=== PATIENT | male | born 1940 | race Caucasian/White ===

== ENCOUNTER 2020-03-07 06:21 | Observation (INO) | payer MEDICARE, OTHER ==
[2020-03-05 14:24] LABS: BASOPHILS # (AUTO) 0.1 X10'3 (0-0.2); BASOPHILS % (AUTO) 0.8 % (0-1); EOSINOPHILS # (AUTO) 0.2 X10'3 (0-0.9); LYMPHOCYTES # (AUTO) 1.9 X10'3 (1.1-4.8); LYMPHOCYTES % (AUTO) 21.4 % (21-51); MEAN CORPUSCULAR HEMOGLOBIN 30.1 PG (27.0-31.0); MEAN CORPUSCULAR HGB CONC 33.1 g/dL (33.0-36.5); MEAN PLATELET VOLUME 8.8 FL (7.4-10.4); MONOCYTES # (AUTO) 0.9 X10'3 (0-0.9); MONOCYTES % (AUTO) 10.5 % (2-12); NEUTROPHILS # (AUTO) 5.7 X10'3 (1.8-7.7); NEUTROPHILS % (AUTO) 65.3 % (42-75); PRE OP HEMATOCRIT 44.8 % (42.0-52.0); PRE OP HEMOGLOBIN 14.8 g/dL (14.0-17.9); PRE OP PLATELET COUNT 199 X10'3 (140-440); RED BLOOD COUNT 4.93 X10'6 (4.70-6.10); RED CELL DISTRIBUTION WIDTH 14.4 % (11.5-14.5)
[2020-03-05 14:37] LABS: PRE OP PROTIME 10.6 SECONDS (9.0-12.0)
[2020-03-05 14:44] LABS: ALBUMIN 3.8 G/DL (3.4-5.0); ALBUMIN/GLOBULIN RATIO 1.3 (1.1-1.5); ALKALINE PHOSPHATASE 70 IU/L (46-116); BLOOD UREA NITROGEN 14 MG/DL (7-18); BUN/CREATININE RATIO 12.3 (5.4-32.0); CHLORIDE 105 MMOL/L (99-107); CREATININE 1.14 MG/DL (0.60-1.10); PRE OP ALT 38 U/L (30-65); PRE OP ANION GAP 8 (8-16); PRE OP AST 19 U/L (10-37); PRE OP BILIRUB, TOTAL 1.2 MG/DL (0.0-1.0); PRE OP GLUCOSE 88 MG/DL (70-104); PRE OP POTASSIUM 4.4 MMOL/L (3.4-5.1); PRE OP SODIUM 139 MMOL/L (135-145); TOTAL CARBON DIOXIDE 26.1 MMOL/L (24-32); TOTAL PROTEIN 6.8 G/DL (6.4-8.2); eGFR 62 ML/MIN
[2020-03-07] VITALS (22 sets, daily range): BP systolic 122–165; BP diastolic 51–82
[~2020-03-07] VITALS: Ht 180.3 cm; Wt 75.8 kg
[~2020-03-07 06:21] MED LIST: ASPI-611 PO; DOMPERIDONE PO; ENAL10TA PO; FINA5TAB11 PO; FLO0.4C PO; FOLIC ACID PO; PANT40TA4 PO; SIMV10TA98 PO; famotidine 20mg tablet PO ONE; ringers solution, lacted 1,000 ML IV SCH
[2020-03-07] MEDS ORDERED: LIDOcaine 1% (10mg/ml) 2ml vial ONE (06:36)
[2020-03-07] MEDS ORDERED: LIDOcaine 1% 30ml preserv. free vial ONE (06:47)
[2020-03-07] MEDS ORDERED: cefazolin/dext.iso 2gm/50ml 50 ML IV ONE (08:55)
[2020-03-07] MEDS ORDERED: fentaNYL/PF 50MCG/1 ML 2ML syringe ONE (09:13)
[2020-03-07] MEDS ORDERED: midazolam 2 mg/2 ml injection ONE (09:14)
[2020-03-07] MEDS ORDERED: ceFAZolin 1000mg inj ONE (09:19)
[2020-03-07] MEDS ORDERED: propofol inj 20 ML IV ONE (09:46)
[2020-03-07] MEDS ORDERED: meperidine/PF 25mg/ml syringe IV PRN ×3 (09:55)
[2020-03-07] MEDS ORDERED: proCHLORperazine 10 MG/2 ml inj IV PRN (09:55)
[2020-03-07] MEDS ORDERED: ondansetron/PF 4mg/2ml inj IV PRN ×2 (09:55→10:15)
[2020-03-07] MEDS ORDERED: morphine 2 MG/ML inj. syringe IV PRN (09:55)
[2020-03-07] MEDS ORDERED: morphine 4 MG/ML inj SYRINge IV PRN (09:55)
[2020-03-07] MEDS ORDERED: ringers solution, lacted 1,000 ML IV SCH (09:55)
--- NOTE | 2020-03-07 10:08 | NUR ---
Received from OR via JAMILA , accompanied by Anesthesiologist SERENE and report given by Anesthesiolgist. PATIENT WITH PIV TO LEFT AC RUNNING LR AT 100. DENIES PAIN . LEFT CHEST WALL WITH OPSITE DRESSING THAT IS CDI. SCDS DONNED. Addendum: 03/07/20 at 1024 by Edwin Roe RN, RN Amended: Links added.
[2020-03-07] MEDS ORDERED: HYDROcodone/acetaminophen 10/325mg tab PO PRN (10:15)
[2020-03-07] MEDS ORDERED: ceFAZolin inj. 1,000 MG in dextrose 5%-water 50ml 50 ML IV SCH (16:00)
[2020-03-07] MEDS: potassium CL 20mEq in D5-1/2NS 1,000 ML IV SCH ×2 (17:21→18:13)
--- NOTE | 2020-03-07 18:30 | NUR ---
Problems reprioritized. Patient report given, questions answered & plan of care reviewed with Miko QUINTANILLA.
--- NOTE | 2020-03-07 22:30 | NUR ---
Patient in room PCU 3018. I have received report from [place]IGHT [place] and had the opportunity to ask questions and assume patient care.
[2020-03-08] MEDS: ceFAZolin 1GM/D5W- ADD-VANTAGE 50 ML IV SCH ×2 (00:32→09:36)
[2020-03-08 01:30] VITALS: BP 156/53
--- NOTE | 2020-03-08 01:30 | NUR ---
Problems reprioritized. Patient report given, questions answered & plan of care reviewed with DWIGHT Bustos.
--- NOTE | 2020-03-08 01:31 | NUR ---
Patient transferred to Med/Surg floor by [facility] to RM 354. Tele changed to number 8. All belongings were bought with him.
--- NOTE | 2020-03-08 01:35 | NUR ---
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 PLACED COMFORTABLE IN BED. VITAL SIGNS WAS TAKEN AND RECORDED.
--- NOTE | 2020-03-08 06:30 | NUR ---
Problems reprioritized. Patient report given, questions answered & plan of care reviewed with ANDRE QUINTANILLA.
[2020-03-08 07:00] VITALS: BP 161/70
--- NOTE | 2020-03-08 07:06 | NUR ---
Patient in room [facility] 354. I have received report from SARATH CLEMENS RN and had the opportunity to ask questions and assume patient care.
[2020-03-08 11:00] VITALS: BP 165/73
--- NOTE | 2020-03-08 11:44 | NUR ---
Called CT regarding CT scan Dr Deluca wants done right not. They are aware and will be up to get patient when they complete patient they have on table. Primary RN aware.
--- NOTE | 2020-03-08 14:15 | NUR ---
PATIENT STABLE AND APPROPRIATE FOR DISCHARGE, TELL TAKEN OFF, IV TAKEN OUT, EDUCATION GIVEN, ALL BELONGINGS SENT WITH PATIENT, PATIENT TAKEN TO LOBBY IN WHEELCHAIR TO AN WAITING CAR WHERE WILL TAKE PATIENT HOME
--- NOTE | 2020-03-15 12:16 | NUR ---
Case Management DC follow up: spoke to pt via telephone. S/P: Pacer implant. Reports: "doing pretty good". Denies: acute/worsening cp, SOB, resp distress, vertigo, syncope,weakness, blurry vision, N/V, CALERO, emergent general pain, abd tenderness/distension. Denies s/s infection at precedure site. Verbalizes understanding of s/s that warrant 9-11/ER visit for evaluation. Verbalizes understanding of new Rx and why prescribed, resumes current Rx/taking as ordered, no ase r/t polypharmacy. Compliance w/after care. Acknowledges need to schedule/keep follow up appts w/ PCP:Molina. pt agrees to call/schedule follow up & request copies of records r/t recent admit, Dr Deluca 03/13/20, Dr Fonseca/first week April. Needs met, questions answered at DC, no further questions at this time.
== END 2020-03-08 14:15 | disposition home or self-care (01) ==
LOC: PAS 06:21 → PCU 3S 10:13 → INTOOBSV 10:13 → SUR 3N 03-08 01:36
PROVIDERS: ADMIT Surgery; ATTEND Surgery
DX: I44.1 Atrioventricular block, second degree (principal)
CPT/HCPCS: 33208; 36415; 71045; 71046; 71048; 71250; 76000; 80053; 82948; 85025; 85610; 85730; 87081; 93005; 96365; 96366; C1785; G0378; J0690; J2001; J2250; J2704; J3010; J3480; J7060; J7120; A4215; A4565; A4618; A6258; A6449; A7000

== ENCOUNTER 2022-07-08 08:01 | Day surgery (SDC) | payer MEDICARE, OTHER ==
[2022-07-07 11:37] LABS: BASOPHILS % (AUTO) 0.5 % (0-1); EOSINOPHILS # (AUTO) 0.2 X10'3 (0-0.9); EOSINOPHILS % (AUTO) 2.4 % (0-6); HEMATOCRIT 45.3 % (42.0-52.0); HEMOGLOBIN 15.2 g/dl (14.0-17.9); LYMPHOCYTES # (AUTO) 1.9 X10'3 (1.1-4.8); LYMPHOCYTES % (AUTO) 26.9 % (21-51); MEAN CORPUSCULAR HEMOGLOBIN 30.4 PG (27.0-31.0); MEAN CORPUSCULAR HGB CONC 33.6 g/dL (33.0-36.5); MEAN CORPUSCULAR VOLUME 90.6 FL (78-98); MONOCYTES # (AUTO) 0.8 X10'3 (0-0.9); MONOCYTES % (AUTO) 12.2 % (2-12); PLATELET COUNT 214 X10'3 (140-440); RED CELL DISTRIBUTION WIDTH 14.4 % (11.5-14.5); WHITE BLOOD COUNT 6.9 X10'3 (4.5-11.0)
[2022-07-07 11:55] LABS: APTT 27 SECONDS (22-32)
[2022-07-07 12:04] LABS: ALANINE AMINOTRANSFERASE 30 U/L (12-78); ALBUMIN 3.8 G/DL (3.4-5.0); ALBUMIN/GLOBULIN RATIO 1.2 (1.1-1.5); ALKALINE PHOSPHATASE 81 IU/L (46-116); ANION GAP 7 (8-16); ASPARTATE AMINO TRANSFERASE 19 U/L (10-37); BILIRUBIN,TOTAL 0.9 MG/DL (0.1-1.0); BLOOD UREA NITROGEN 14 MG/DL (7-18); BUN/CREATININE RATIO 15.7 (5.4-32.0); CHLORIDE 103 MMOL/L (99-107); CREATININE 0.89 MG/DL (0.60-1.10); GLUCOSE 96 MG/DL (70-104); POTASSIUM 4.1 MMOL/L (3.5-5.1); SODIUM 137 MMOL/L (135-145); TOTAL CARBON DIOXIDE 27.5 MMOL/L (24-32); eGFR 82 ML/MIN
[2022-07-08] VITALS (10 sets, daily range): BP systolic 111–157; BP diastolic 48–88
[~2022-07-08] VITALS: Ht 180.3 cm; Wt 73.8 kg
[~2022-07-08 08:01] MED LIST changes: -PANT40TA4 PO; +PANT40TA54 PO; -famotidine 20mg tablet PO ONE; -ringers solution, lacted 1,000 ML IV SCH
[2022-07-08] MEDS ORDERED: LORazepam 0.5 MG tablet PO PRN (08:20)
[2022-07-08] MEDS ORDERED: nitroGLYCERIN 0.4mg SUBLingual tab SL PRN ×2 (08:20→12:00)
[2022-07-08] MEDS ORDERED: normal saline 1,000 ML IV SCH (08:20)
[2022-07-08] MEDS ORDERED: diphenhydrAMINE 25mg capsule PO PRN (08:20)
[2022-07-08] MEDS ORDERED: PYRI-3 PO (08:35)
[2022-07-08] MEDS ORDERED: ATOR10TA87 PO (08:35)
[2022-07-08] MEDS ORDERED: CYAN100T47 PO (08:35)
[2022-07-08] MEDS ORDERED: DIGO250T4 PO (08:35)
[2022-07-08] MEDS ORDERED: ENAL2.5T40 PO (08:35)
[2022-07-08] MEDS ORDERED: CHOL400T57 PO (08:35)
[2022-07-08] MEDS ORDERED: CARV-50 PO (08:35)
[2022-07-08] MEDS ORDERED: OMEP40CA21 PO (08:35)
[2022-07-08] MEDS ORDERED: midazolam 1 mg/ML 2ml injection ONE ×2 (10:20→11:03)
[2022-07-08] MEDS ORDERED: LIDOcaine 1% 30ml preserv. free vial ONE (10:20)
[2022-07-08] MEDS ORDERED: fentaNYL/PF 50MCG/1 ML 2ML syringe ONE (10:20)
[2022-07-08] MEDS ORDERED: iohexol 350MG/ML 100ml bottle IV ONE ×2 (10:21→10:24)
[2022-07-08] MEDS ORDERED: famotidine/PF 10 mg/ml inj IV ONE (10:50)
[2022-07-08] MEDS ORDERED: normal saline 1000ml 1,000 ML IV SCH (12:00)
[2022-07-08] MEDS ORDERED: HYDROcodone/acetaminophen 5mg/325mg tablet PO PRN (12:00)
[2022-07-08] MEDS ORDERED: OXAZEpam 15mg capsule PO PRN (12:00)
[2022-07-08] MEDS ORDERED: ondansetron/PF 4mg/2ml inj IV PRN (12:00)
[2022-07-08] MEDS ORDERED: HYDROcodone/acetaminophen 10/325mg tab PO PRN (12:00)
== END 2022-07-08 17:00 | disposition home or self-care (01) ==
LOC: SSTAY O 08:01
PROVIDERS: ATTEND Internal Medicine Cardiovascular Disease
DX: R94.39 Abnormal result of other cardiovascular function study (principal); I25.10 Atherosclerotic heart disease of native coronary artery without angina pectoris; I07.1 Rheumatic tricuspid insufficiency; I44.7 Left bundle-branch block, unspecified; Z85.01 Personal history of malignant neoplasm of esophagus; Z79.01 Long term (current) use of anticoagulants; Z79.899 Other long term (current) drug therapy; Z98.890 Other specified postprocedural states
CPT/HCPCS: 36415; 71046; 80053; 85025; 85610; 85730; 93005; 93458; 99152; 99153; C1760; C1769; J1644; J2250; J3010; J3490; J7030; Q0163; Q9967; A4620; A6258